=== PATIENT | male | born 1950 | race American Indian/Alaskan Native ===

== ENCOUNTER 2019-08-14 14:44 | Emergency (ER) | payer SELFPAY ==
[2019-08-14 15:30] VITALS: BP 126/86
== END 2019-08-14 18:17 | disposition left against medical advice (07) ==
LOC: ED 14:44
DX: Z04.1 Encounter for examination and observation following transport accident (principal); Z53.21 Procedure and treatment not carried out due to patient leaving prior to being seen by health care provider